=== PATIENT | female | born 1965 | race Caucasian/White ===

== ENCOUNTER → 2023-07-08 06:53 | Outpatient (REF) | payer OTHER, SELFPAY | LOC: HWRAD 06:53 | PROVIDERS: ATTENDING PHYSICIAN Internal Medicine | DX: Z12.31 Encounter for screening mammogram for malignant neoplasm of breast (principal); Z00.00 Encounter for general adult medical examination without abnormal findings; Z78.0 Asymptomatic menopausal state | CPT/HCPCS: 77063; 77067; 77080 ==

== ENCOUNTER → 2023-09-20 | Outpatient (REF) | payer OTHER, SELFPAY | LOC: DHSLP | PROVIDERS: ATTENDING PHYSICIAN Internal Medicine | DX: G47.33 Obstructive sleep apnea (adult) (pediatric) (principal) | CPT/HCPCS: 95806 ==

== ENCOUNTER 2024-02-20 06:24 | Day surgery (SDC) | payer OTHER, SELFPAY | END 2024-02-20 15:16 | disposition home or self-care (01) | LOC: GI 06:24 | PROVIDERS: ATTENDING PHYSICIAN Internal Medicine Gastroenterology | DX: Z12.11 Encounter for screening for malignant neoplasm of colon (principal); Z83.719 Family history of colon polyps, unspecified; D12.0 Benign neoplasm of cecum | CPT/HCPCS: 45385; 88305 ==